=== PATIENT | male | born 1970 | race Hispanic/Latino ===

== ENCOUNTER 2021-02-21 12:45 | Emergency (ER) | payer SELFPAY ==
[2021-02-21] MEDS ORDERED: Lidocaine 2% w/Epinephrine 1:200K 20 ML VIAL ONE (12:52)
[2021-02-21] MEDS ORDERED: Lidocaine 2% PF 5 ML VIAL ONE (12:55)
[2021-02-21 13:07] LABS: INR-International Normal Ratio 0.9; PTT 27.5 sec (22.9-36.1); Prothrombin Time 12.5 sec (12.0-14.7)
[2021-02-21 13:09] LABS: #Basophils 0.1 thou/uL (0.0-0.2); #Eosinphils 0.1 thou/uL (0.0-0.7); #Lymphocytes 1.7 thou/uL (1.20-3.40); #Monocytes 0.4 thou/uL (0.11-0.59); #Neutrophils 4.7 thou/uL (1.40-6.50); %Basophils 0.9 % (0.0-1.0); %Eosinophils 1.4 % (0.0-10.0); %Lymphocytes 24.7 % (21.0-51.0); %Neutrophils 67.1 % (42.0-75.0); Hemoglobin 16.6 g/dL (14.0-18.0); Mean Corpuscular Hemoglobin 34.3 pg (27.0-31.0); Mean Corpuscular Volume 98.1 fL (78.0-98.0); Platelet Count 204 thou/uL (130-400); RBC Distribution Width 11.4 % (11.5-14.5); Red Blood Cell (RBC) Count 4.85 mill/uL (4.70-6.10)
[2021-02-21 13:16] LABS: ALT (SGPT) 29 U/L (8-55); AST (SGOT) 30 U/L (5-34); Albumin 4.6 g/dL (3.5-5.0); Alkaline Phosphatase 82 U/L (40-110); Anion Gap 17 mmol/L (10-20); BUN (Urea Nitrogen) 16 mg/dL (8.4-25.7); Bilirubin, Total 0.5 mg/dL (0.2-1.2); Calcium 9.6 mg/dL (7.8-10.44); Carbon Dioxide 24 mmol/L (22-29); Globulin 3.6 g/dL (2.4-3.5); Glucose 119 mg/dL (70-105); Protein, Total 8.2 g/dL (6.0-8.3)
[2021-02-21] MEDS ORDERED: Boostrix 0.5 ML (Tdap) VIAL ONE (13:24)
[2021-02-21] MEDS ORDERED: cefTRIAXone\\ROCEPHIN 1 GM VIAL ONE (13:25)
[2021-02-21 13:26] LABS: Anisocytosis SLIGHT = 6-15 cells (100X) (0-5/hpf); Hypochromia SLIGHT = 6-15 cells (100X) (0-5/hpf); MDiff Complete? YES; Ovalocytes SLIGHT = 2-5 cells (100X) (0-1/hpf)
[2021-02-21] MEDS ORDERED: Sodium Chloride 0.9% 100 ML ONE ×2 (13:26→13:29)
[2021-02-21] MEDS ORDERED: CEFAZOLIN 1 GM VIAL ONE (13:28)
[2021-02-21 13:37] LABS: Calc. Creatinine Clearance 0 mL/min (70-130); Chloride 105 mmol/L (98-107); Potassium 3.5 mmol/L (3.5-5.1); Sodium 142 mmol/L (136-145)
[2021-02-21] MEDS ORDERED: Bacitracin 1 PK ONE (14:17)
== END 2021-02-21 16:30 | disposition home or self-care (01) ==
LOC: BURERS 12:45
DX: S02.832A Fracture of medial orbital wall, left side, initial encounter for closed fracture (principal); S52.502A Unspecified fracture of the lower end of left radius, initial encounter for closed fracture; S68.113A Complete traumatic metacarpophalangeal amputation of left middle finger, initial encounter; S63.501A Unspecified sprain of right wrist, initial encounter; S70.12XA Contusion of left thigh, initial encounter; W17.89XA Other fall from one level to another, initial encounter
CPT/HCPCS: 11760; 25600; 70450; 70486; 71045; 72125; 80053; 85025; 85610; 85730; 90471; 90715; 94760; 96365; J0690; J0696; J2001; J3490